=== PATIENT | male | born 1975 | race Caucasian/White ===

== ENCOUNTER 2020-01-24 17:10 | Outpatient (CLI) | payer OTHER, SELFPAY ==
--- NOTE | ~2020-01-24 | XR_ITS ---
EXAMINATION: XR abdomen/kub 1V DATE: 01/24/2020 18:02 INDICATION: Right abdominal pain. TECHNIQUE: A supine view of the abdomen on 3 radiographs was obtained. COMPARISON: CT abdomen and pelvis 02/06/2016 FINDINGS: There are no dilated loops of bowel. There is a moderate volume of stool in the colon. Ther e is a gallstone in the gallbladder. IMPRESSION: 1. Normal bowel gas pattern. 2. Cholelithiasis. Reviewed, dictated and finalized at location A. ORY CARD CLERK
[2020-01-24 17:53] LABS: Basophils Absolute Auto 0.1 K/mm3 (0.0-0.1); Basophils Percent Auto 0.7 % (0.2-1.2); Eosinophils Absolute Auto 0.4 K/mm3 (0-0.3); Eosinophils Percent Auto 4.8 % (0-4.4); Hematocrit 40.6 % (42.0-52.0); Hemoglobin 13.5 g/dL (14.0-18.0); Immature Granulocyte Absolute 0.02 K/mm3 (0.00-0.031); Immature Granulocyte Percent A 0.2 % (0-0.5); Lymphocytes Absolute Auto 2.88 K/mm3 (0.9-3.2); Lymphocytes Percent Auto 33.7 % (18.3-44.2); Mean Corpuscular HGB Conc 33.3 g/dl (32-36); Mean Corpuscular Hemoglobin 29.8 pg (26-34); Mean Corpuscular Volume 89.6 fl (80-100); Mean Platelet Volume 9.2 fl (7.4-10.4); Monocytes Absolute Auto 0.6 K/mm3 (0.1-0.6); Monocytes Percent Auto 6.4 % (2.6-8.5); Neutrophils Absolute Auto 4.6 K/mm3 (1.3-6.7); Neutrophils Percent Auto 54.2 % (45.5-73.1); Platelet Count Result 315 k/mm3 (150-375); Red Blood Count 4.53 M/mm3 (4.6-6.20); Red Cell Distribution Width 13.6 % (11.5-14.5); White Blood Count 8.5 K/mm3 (4.5-10.0)
[2020-01-24 18:03] LABS: Alanine Aminotransferase 34 U/L (4-50); Albumin Level 4.3 g/dL (3.5-5.1); Alkaline Phosphatase 74 U/L (38-126); Amylase 48 U/L (30-110); Anion Gap 10 mmol/L (8-16); Aspartate Amino Transferase 36 U/L (17-59); Bilirubin,Total 0.2 mg/dL (0.2-1.3); Blood Urea Nitrogen 18 mg/dL (9-20); Calcium 9.2 mg/dL (8.4-10.2); Carbon Dioxide 29 mmol/L (22-30); Chloride 102 mmol/L (98-107); Estimated Glomerular Filt Rate > 60; Glucose 176 mg/dL (75-110); Lipase 91 U/L (23-300); Sodium 141 mmol/L (137-145)
== END 2020-01-24 17:11 | disposition home or self-care (01) ==
LOC: ANHLAB 17:12
PROVIDERS: PCP Family Medicine; Visit Provider Family Medicine
DX: R10.9 Unspecified abdominal pain (principal); K80.20 Calculus of gallbladder without cholecystitis without obstruction
CPT/HCPCS: 36415; 74018; 80053; 82150; 83690; 85025

== ENCOUNTER → 2021-03-29 03:22 | Outpatient (CLI) | payer OTHER, SELFPAY ==
[2021-03-29 14:17] LABS: Influenza Control Positive
[2021-03-29 22:11] LABS: SARS-CoV-2 RNA PCR Positive
== END ==
PROVIDERS: PCP Family Medicine; Visit Provider Physician Assistant
DX: U07.1 COVID-19 (principal)
CPT/HCPCS: 87804; C9803; U0003; U0005

== ENCOUNTER 2024-05-05 09:52 | Outpatient (CLI) | payer OTHER, SELFPAY ==
--- NOTE | ~2024-05-05 | XR_ITS ---
Clinical Indication: Cough PA and lateral views of the chest: Comparison: 02/06/2016 Findings: The lungs are clear, without evidence of focal consolidation or pleural effusion. There is fullness of the hilar regions, likely representing pulmonary venous congestive change. Cardiac silhou ette otherwise unchanged.. Bones and soft tissues are unremarkable. Impression: Prominent janett, likely represent pulmonary venous congestive change, or possibly pulmonary hypertensi on. Reviewed, dictated and finalized at location M. GRATED CIRCUIT DESIGN ENGINEER Impression: Prominent janett, likely represent pulmonary venous congestive change, or possibl y pulmonary hypertension.
--- OUTSIDE RECORDS SUMMARY | 2024-05-05 10:18 | XMS_ITS | Clinical Summary ---
Author Organization [facility] [address] Address [address] [place] [address] Care Team Providers Care Supervisor Orchard Name Role Phone Boy Queen MD Primary Care Provider Allergies No known active allergies Medications metoprolol XL (TOPROL-XL) 25 mg 24 hr tablet Take 25 mg by mouth daily 1 10/29/2018 Active atorvastatin (LIPITOR) 40 mg tablet Take 40 mg by mouth daily 1 10/29/2018 Active Active Problems Problem Noted Date Diagnosed Date Precordial pain 11/04/2018 Abnormal stress test 11/04/2018 Morbid obesity with BMI of 50.0-59.9, adult 10/21 Essential hypertension 11/04/2018 Mixed hyperlipidemia 11/04/2018 Surgical History Surgery Date Site/Laterality Comments KNEE SURGERY Bilateral Medical History Medical History Date Comments Hypertension Heart attack (HCC) Hyperlipidemia Family History Medical History Relation Name Comments No Known Problems Mother No Known Problems Sister 1 Liver cancer Sister 2 Relation Name Status Comments Father Alive Mother Alive Sister 1 Alive Sister 2 Alive Social History Tobacco Use Types Packs/Day Years Used Date Smoking Tobacco: Never Smokeless Tobacco: Never Alcohol Use Standard Drinks/Week Comments Not Currently 0 (1 standard drink = 0.6 oz pur e alcohol) Personal Safety Answer Date Recorded Getting School Help Needed Not on file 06/06 Sex and Gender Information Value Date Recorded Sex Assigned at Not on file Legal 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 Gender Identity Not on file Sexual Orientation Not on file Obstetrics History Last Filed Vital Signs Vital Sign Reading Time Taken Comments Blood Pressure 126/78 11/04/2018 3:27 PM CDT Pulse 65 11/04/2018 3:27 PM CDT Temperature - - Respiratory Rate - - Oxygen Saturation 97% 11/04/2018 3:27 PM CDT Inhaled Oxygen Concentration - - Weight 201.9 kg (445 lb) 11/04/2018 3:27 PM CDT Height 185.4 cm (6' 1 ) 11/04/2018 3:27 PM CDT Body Mass Index 58.71 11/04/2018 3:27 PM CDT Plan of Treatment Not on file Insurance [facility] CHOICE PLUS Care Teams Supervisor Orchard Relationship Specialty Start Date End Date Boy Queen MD [address] [facility] [address] [place] [address] PCP - General Family Medicine 10/06/18
--- OUTSIDE RECORDS SUMMARY | 2024-05-05 10:18 | XMS_ITS | Referral Summary ---
Author Organization [facility] [address] Address [address] [place] [address] Care Team Providers Care Honing Machine Set Up Operator Tool Name Role Phone Boy Queen MD Primary [...] 10/21 Essential hypertension 11/04/2018 Mixed hyperlipidemia 11/04/2018 Social History Tobacco Use Types Packs/Day Years Used Date Smoking Tobacco: Never Smokeless Tobacco: Never Alcohol Use Standard Drinks/Week Comments Not Currently 0 (1 standard drink = 0.6 oz pur e alcohol) Personal Safety Answer Date Recorded Getting School Help Needed Not on file 06/06 Sex and Gender Information Value Date Recorded Sex Assigned at Not on file 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 Gender Identity Not on file Sexual Orientation Not on file Last Filed Vital Signs Vital Sign Reading [...] Plan of Treatment Not on file Insurance [facility] HMO/PPO Address: [facility] [id number] [place] [phone] [facility] CHOICE PLUS [facility]/PPO Address: [place] [address] [facility]ICE PLUS [facility] [address] Care Teams Honing Machine Set Up Operator Tool Relationship Specialty Start Date End Date Boy Queen MD [address] [facility] [address] [place] [address] PCP - General Family Medicine 10/06/18
--- OUTSIDE RECORDS SUMMARY | 2024-05-05 10:19 | XMS_ITS | Clinical Summary ---
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 Gender Identity Not on file Sexual Orientation Not on file Plan of Treatment Health Maintenance Due Date Last Done Comments Colorectal Cancer Screening Colonoscopy (10 Years) 1974 Annual Physical 1977 Hepatitis C 1992 DTaP, Tdap and Td Vaccines ( 1 - Tdap) 1993 Hepatitis B Vaccines (1 of 3 - 19+ 3-dose series) 1993 COVID-19 Vaccine (2023-2 5 season) 2023 Influenza Adult (#1) 2023 Meningococcal B Vaccine Aged Out No l onger eligible based on patient's age to complete this topic Meningococcal Vaccine Aged Out No yari mayito eligible based on patient's age to complete this topic Pneumococcal Vaccine: Pediat rics (0 to 5 Years) and At-Risk Patients (6 to 64 Years) Aged Out No longer eligible b ased on patient's age to complete this topic RSV Immunizations Under 20 Months Aged Out No longer eligible based on patient's age to complete this topic
== END 2024-05-05 09:53 | disposition home or self-care (01) ==
PROVIDERS: PCP Family Medicine; Visit Provider Physician Assistant
DX: R91.8 Other nonspecific abnormal finding of lung field (principal); R05.9 Cough, unspecified; R04.2 Hemoptysis
CPT/HCPCS: 71046